=== PATIENT | female | born 1980 | race Caucasian/White ===

== ENCOUNTER 2024-08-13 16:38 | Emergency (ER) | payer SELFPAY ==
[~2024-08-13] VITALS: Ht 162.6 cm; Wt 59.0 kg
[2024-08-13] MEDS: IV NS 0.9% 1,000 ML BAG IV ONE (17:30)
[2024-08-13] MEDS: ONDANSETRON HCL/PF 4 MG/2 ML VIAL IVP ONE (17:30)
[2024-08-13] MEDS: LORAZEPAM INJ 2 MG/ML VIAL IV ONE (18:00)
[2024-08-13] MEDS ORDERED: ONDANSETRON HCL/PF 4 MG/2 ML VIAL ONE (18:14)
[2024-08-13] MEDS ORDERED: LORAZEPAM INJ 2 MG/ML VIAL ONE (18:14)
[2024-08-13 18:16] LABS: BASOPHILS # (AUTO) 0.1 K/uL (0.0-0.2); BASOPHILS % (AUTO) 0.6 % (0.0-2.0); EOSINOPHILS % (AUTO) 0.4 % (0.0-6.0); HEMATOCRIT 41 % (33-45); HEMOGLOBIN 14.1 g/dL (11.5-14.8); LYMPHOCYTES # (AUTO) 2.3 K/uL (0.8-4.8); LYMPHOCYTES % (AUTO) 20.7 % (20.0-44.0); MEAN CORPUSCULAR HEMOGLOBIN 32 PG (26.0-33.0); MEAN CORPUSCULAR HGB CONC 35 g/dl (31.0-36.0); MEAN CORPUSCULAR VOLUME 93 fL (82-100); MONOCYTES # (AUTO) 0.8 K/uL (0.1-1.30); MONOCYTES % (AUTO) 7.7 % (2.0-12.0); NEUTROPHILS # (AUTO) 7.7 K/uL (1.8-8.9); NEUTROPHILS % (AUTO) 70.6 % (43.0-81.0); PLATELET COUNT (AUTO) 353 K/uL (150-450); RED CELL DISTRIBUTION WIDTH 16.6 % (11.5-15.0); WHITE BLOOD COUNT (AUTO) 10.9 K/uL (4.3-11.0)
[2024-08-13 18:23] LABS: CALCIUM, SERUM 8.9 mg/dL (8.5-10.1); CREATININE 0.9 mg/dL (0.6-1.3); POTASSIUM 3.8 mmol/L (3.5-5.1)
[2024-08-13 18:28] LABS: ALBUMIN 3.2 g/dL (3.4-5.0); BILIRUBIN,DIRECT 0.1 mg/dL (0.0-0.2); BILIRUBIN,TOTAL 0.6 mg/dL (0.2-1.0); TOTAL PROTEIN, SERUM 7.2 g/dL (6.4-8.2)
[2024-08-13] MEDS ORDERED: ONDA4TAB11 PO (18:32)
[2024-08-13 19:39] VITALS: BP 111/81; TEMP 99.1; O2SAT 99
== END 2024-08-13 19:40 | disposition home or self-care (01) ==
LOC: ER 16:41
DX: R11.2 Nausea with vomiting, unspecified (principal); R19.7 Diarrhea, unspecified; R00.2 Palpitations; Z88.2 Allergy status to sulfonamides
CPT/HCPCS: 99284; 96374; 96361; 96375; 93005; 85025; 80048; 83690; 80076; 36415; J2060; J2405; J7030